=== PATIENT | female | born 1950 | race Caucasian/White ===

== ENCOUNTER → 2017-11-29 | Outpatient (CLI) | payer OTHER, MEDICAID ==
--- NOTE | 2017-11-29 14:02 | RAD ---
History: Chronic lower back pain Study: Lumbar spine complete Findings: Multiple views of the lumbar spine demonstrates moderately severe degenerative changes of t he apophyseal joints. Alignment is normal. Disc space narrowing at the L5-S1 level is noted. Pedicles are intact and no fracture is seen. Impression: Moderate osteoarthrosis of the lumbar spine. Degenerative disc disease at the L5-S1 level. Reported By:
--- NOTE | 2017-11-29 14:28 | MRI ---
MRI left hip without contrast. Indication: Left hip pain which radiates down left leg Technique: Multiplanar, multi sequence imaging of the left hip without IV contrast administration. Findings: Bone marrow signal within the visualized sacrum is normal. There is no increased fluid with in either SI joint. No reactive marrow edema within the iliac or sacral side of the SI joints. Pubic symphysis demonstrates mild degenerative change without joint fluid or reactive marrow edema. Obturat or rings are intact. The left femoral head remains well positioned within the acetabular fossa. There is mild to moderate chondral thinning and irregularity of the entire femoroacetabular articular cartilage with subtle bon e marrow edema within the medial femoral head. Small subcortical cyst is noted within the anterior fe moral head/neck junction. There is heterogeneous signal and truncation of the posterior labral for ex ample on image 13, series 701 along with the anterior superior labrum for example on image 8, series 901. Small hip joint effusion. There is no subchondral collapse or osteonecrosis. No femoral head or neck edema to suggest insufficiency or stress fracture. There is no abnormal signal identified within the gluteal, hamstring, adductor or iliopsoas musculature. Imaging of the deep pelvis demonstrates n o acute inflammatory process. No definite adenopathy within the pelvis or left groin. Impression: 1.[id number] degenerative change within left femoroacetabular joint evidence by chondral thinni ng and mild femoral head subchondral bone marrow edema. There is intermediate signal and mild truncat ion of the anterior superior and posterior labrum suspicious for chronic, degenerative labral tears. No paralabral cyst or displaced labral tear. 2.Mild osteitis pubis.. Reported By:
--- NOTE | 2017-11-29 14:52 | CT ---
LUMBAR SPINE CT WITHOUT IV CONTRAST CLINICAL INDICATION: Chronic low back pain TECHNIQUE: Multiple-row detector helical CT examination of the lumbar spine. Axial, sagittal, and cor onal reconstructed images. Dose reduction techniques including Automated Exposure Control (AEC) and a djustment of mA and kV were utlized. COMPARISON: None. FINDINGS: There is no evidence of acute fracture or subluxation. Normal alignment is maintained without scolios is or listhesis. Vertebral body heights are maintained. No aggressive osseous lesions are identified. Mild multilevel degenerative disc disease worst at L5-S1 . Shortened pedicles congenitally with smal l disc bulges from L2 through L5 S1 results and multiple levels of what is likely significant spinal canal stenosis. IMPRESSION: 1. Congenitally short pedicles and multilevel degenerative disc disease resulting in multiple levels of spinal canal stenosis. It should be noted that the preferred modality for evaluation of spinal and neural foraminal stenosis as well as chronic back pain would be MRI. Reported By:
--- NOTE | 2017-11-30 15:00 | MRI ---
STUDY: MRI OF THE THORACIC SPINE History: T-spine pain. Back pain and left hip pain that radiates down. Technique: An MRI examination of thoracic spine was performed using sagittal T1, T1 FS, T2, T2 STIR, and axial T1 and T2 GRE images. Comparison: None. Findings: Vertebral body alignment is within normal limits. Marrow signal is age-appropriate. There i s a Schmorl's node in the inferior endplate of T8. There is a small Schmorl's node in the superior en dplate of T11. There is a syrinx within the thoracic spinal cord from T5-T10. Intervertebral discs are fairly well preserved. There is no evidence of thoracic spinal cord compression. Axial images show no evidence of focal disc bulge or focal disk herniation. There is no evidence of c ord compression. There is no evidence of significant spinal stenosis. There is no significant neural foraminal stenosis. Impression: 1. 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 2. Small Schmorl's nodes at T8 and T11. Reported By:
== END | disposition home or self-care (01) | DRG 556 ==
LOC: RAD 10:38
PROVIDERS: ATTEND Neurological Surgery
DX: M25.552 Pain in left hip (principal); M54.16 Radiculopathy, lumbar region; M51.37 Other intervertebral disc degeneration, lumbosacral region; M51.44 Schmorl's nodes, thoracic region; M51.84 Other intervertebral disc disorders, thoracic region
CPT/HCPCS: 72110; 72131; 72146; 73721